=== PATIENT | female | born 1970 | race American Indian/Alaskan Native ===

== ENCOUNTER 2016-11-27 09:54 | Outpatient (CLI) | payer BC ==
--- NOTE | 2016-11-28 09:38 | Mammography Report ---
Bilateral digital screening mammogram with CAD. Comparison study is dated November 25, 2015. Findings: The breast parenchyma is heterogeneously dense, and the overall pattern is stable. An ovoid shaped circumscribed mass in the upper-outer quadrant of the left breast is unchanged. Scattered calcifications demonstrate benign features and are also stable. No new masses or architectural distortion. Impression: Stable benign findings. BI-RADS code: 2. Recommendation: Annual screening.
== END 2016-11-27 09:55 | disposition home or self-care (01) ==
LOC: MAMMO 09:54
PROVIDERS: ATTEND Obstetrics & Gynecology
DX: Z12.31 Encounter for screening mammogram for malignant neoplasm of breast (principal)
CPT/HCPCS: 77067; G0202

== ENCOUNTER 2017-12-05 09:14 | Outpatient (CLI) | payer BC ==
--- NOTE | 2017-12-05 16:08 | Mammography Report ---
BILATERAL DIGITAL SCREENING MAMMOGRAM with CAD : 12/05/17 09:14:00 CLINICAL: Routine screening. COMPARISON:11/27/16 and 11/25/15 FINDINGS: The breasts are heterogeneously dense, which may obscure small masses.Stable bilateral benign calcifications and stable circumscribed masses of the left breast. No new mass, architectural distortion or suspicious calcifications. IMPRESSION: No mammographic evidence of malignancy. BI-RADS CATEGORY: 2 -- Benign RECOMMENDATION: Routine mammographic screening in one year. COMMENT: Patient follow-up letters are generated by our [email or web address] application.
== END 2017-12-05 09:15 | disposition home or self-care (01) ==
LOC: MAMMO 09:14
PROVIDERS: ATTEND Obstetrics & Gynecology
DX: Z12.31 Encounter for screening mammogram for malignant neoplasm of breast (principal)
CPT/HCPCS: 77067

== ENCOUNTER 2018-12-06 09:01 | Outpatient (CLI) | payer BC ==
--- NOTE | 2018-12-06 13:13 | Mammography Report ---
BILATERAL DIGITAL SCREENING MAMMOGRAM with CAD : 12/06/18 09:01:00 CLINICAL: Routine screening. COMPARISON:12/05/17 and 11/18/14 FINDINGS: The breasts are heterogeneously dense, which may obscure small masses.Bilateral benign calcifications and bilateral circumscribed masses which are unchanged compared to previous exams. No new mass, architectural distortion or suspicious calcifications. IMPRESSION: No mammographic evidence of malignancy. BI-RADS CATEGORY: 2 -- Benign RECOMMENDATION: Routine mammographic screening in one year. COMMENT: Patient follow-up letters are generated by our [employer] application.
== END 2018-12-06 09:02 | disposition home or self-care (01) ==
LOC: MAMMO 09:01
PROVIDERS: ATTEND Obstetrics & Gynecology
DX: Z12.31 Encounter for screening mammogram for malignant neoplasm of breast (principal)
CPT/HCPCS: 77067

== ENCOUNTER 2020-05-06 13:00 | Outpatient (CLI) | payer BC | END 2020-05-06 13:01 | disposition home or self-care (01) | LOC: MAMMO 13:00 | PROVIDERS: ATTEND Obstetrics & Gynecology | DX: Z12.31 Encounter for screening mammogram for malignant neoplasm of breast (principal) | CPT/HCPCS: 77067 ==

== ENCOUNTER 2021-05-09 09:57 | Outpatient (CLI) | payer BC ==
--- NOTE | 2021-05-09 11:11 | Mammography Report ---
DIGITAL SCREENING MAMMOGRAM WITH CAD, 05/09/2021 CLINICAL INFORMATION / INDICATION: Routine screening mammography. SCRN MAMMO TECHNIQUE: Digital bilateral 2D mammography was obtained in the craniocaudal and mediolateral obliqu e projections. This examination was interpreted with the benefit of Computer-Aided Detection analysis . COMPARISON: 05/06/2020 FINDINGS: Breast Density: The breasts are heterogeneously dense, which may obscure small masses. No dominant mass, suspicious calcifications, or architectural distortion in either breast. Stable bilateral nodularity and benign-appearing calcification. IMPRESSION: No mammographic evidence of malignancy. Follow up recommendation: Routine yearly BI-RADS Category 2: Benign. A "normal" or negative report should not discourage follow up or biopsy of a clinically significant f inding. A written summary of these findings will be mailed to the patient. The patient will be entered into a mammography reporting system which will generate a reminder letter for the patient's next appointmen t at the appropriate interval. The [employer] recommends yearly mammograms starting at age 40 and continuing as l susana as a woman is in good health. Breast MRI is recommended for women with an approximate 20-25% or greater lifetime risk of breast cancer, including women with a strong family history of breast or ova dusty cancer or who have been treated for Hodgkin's disease. Signer Name: Murtaza Ocasio MD Signed: 05/09/2021 11:07 AM Workstation Name: [id number]
== END 2021-05-09 09:58 | disposition home or self-care (01) ==
LOC: MAMMO 09:57
PROVIDERS: ATTEND Obstetrics & Gynecology
DX: Z12.31 Encounter for screening mammogram for malignant neoplasm of breast (principal)
CPT/HCPCS: 77067

== ENCOUNTER 2022-05-11 09:23 | Outpatient (CLI) | payer BC ==
--- NOTE | 2022-05-14 10:17 | Mammography Report ---
DIGITAL SCREENING MAMMOGRAM WITH CAD, 05/11/2022 CLINICAL INFORMATION / INDICATION: Routine screening mammography. TECHNIQUE: Digital bilateral 2D mammography was obtained in the craniocaudal and mediolateral obliqu e projections. This examination was interpreted with the benefit of Computer-Aided Detection analysis . COMPARISON: 05/09/2021, 05/06/2020 FINDINGS: Breast Density: The breasts are heterogeneously dense, which may obscure small masses. No new dominant mass, suspicious calcifications, or architectural distortion in either breast. Multiple bilateral benign-appearing masses and calcifications have not significantly changed. IMPRESSION: No mammographic evidence of malignancy. Follow up recommendation: Routine yearly screening mammogram. BI-RADS Category 2: BENIGN. A "normal" or negative report should not discourage follow up or biopsy of a clinically significant f inding. A written summary of these findings will be mailed to the patient. The patient will be entered into a mammography reporting system which will generate a reminder letter for the patient's next appointmen t at the appropriate interval. The [employer] recommends yearly mammograms starting at age 40 and continuing as l susana as a woman is in good health. Breast MRI is recommended for women with an approximate 20-25% or greater lifetime risk of breast cancer, including women with a strong family history of breast or ova dusty cancer or who have been treated for Hodgkin's disease. Signer Name: Toni Mariscal MD Signed: 05/14/2022 10:12 AM Workstation Name: [id number]
== END 2022-05-11 09:24 | disposition home or self-care (01) ==
LOC: MAMMO 09:23
PROVIDERS: ATTEND Obstetrics & Gynecology
DX: Z12.31 Encounter for screening mammogram for malignant neoplasm of breast (principal)
CPT/HCPCS: 77067